=== PATIENT | female | born 1990 | race Caucasian/White ===

== ENCOUNTER 2017-07-25 10:38 | Observation (INO) | payer OTHER ==
[~2017-07-25] VITALS: Ht 162.6 cm; Wt 70.3 kg
[~2017-07-25 10:38] MED LIST: FOLI0.4T2 PO; IBUP-22; PREN1TAB49 PO
[2017-07-25] MEDS ORDERED: LACTATED RINGERS 1,000 ML IV SCH (11:15)
[2017-07-25] MEDS ORDERED: ONDANSETRON HCL 4MG/2ML VIAL IV NR (11:15)
[2017-07-25] MEDS ORDERED: ACETAMINOPHEN 325MG TABLET PO NR (11:15)
[2017-07-25] MEDS ORDERED: CEFAZOLIN 2,000 MG in DEXT 5% WATER 100 ML IV NR (12:00)
[2017-07-25] MEDS ORDERED: PNV1TABL76 PO (12:25)
== END 2017-07-25 12:52 | disposition home or self-care (01) ==
LOC: L&D 10:38
PROVIDERS: ADMIT Obstetrics & Gynecology; ATTEND Obstetrics & Gynecology
DX: O21.2 Late vomiting of pregnancy (principal); Z3A.36 36 weeks gestation of pregnancy
CPT/HCPCS: 96365; 99281; G0378; J0690; J2405; J7120; 96360; 96361; J7060

== ENCOUNTER 2017-08-05 22:10 | Inpatient (IN) | payer OTHER ==
[~2017-08-05] VITALS: Ht 162.6 cm; Wt 72.6 kg
[~2017-08-05 22:10] MED LIST changes: +PNV1TABL76 PO
[2017-08-05] MEDS ORDERED: LACTATED RINGERS 1,000 ML IV SCH (22:53)
[2017-08-05] MEDS ORDERED: DEXT 5%/LR + PITOCIN 20UNITS/L 1,000 ML IV SCH (22:53)
[2017-08-05] MEDS ORDERED: CARBOPROST TROMETHAMINE 250 MCG/ML AMPUL IM PRN (23:00)
[2017-08-05] MEDS ORDERED: METHYLERGONOVINE MALEATE 0.2 MG/ML IM PRN (23:00)
[2017-08-05] MEDS ORDERED: LIDOCAINE HCL 1% 20ML VIAL (Pyxis) INJ INFIL SCH (23:00)
[2017-08-05] MEDS ORDERED: NALOXONE HCL 0.4 MG/ML 1ML VIAL IM PRN (23:00)
[2017-08-05] MEDS ORDERED: BUTORPHANOL TARTRATE 2 MG/ML VIAL IV PRN (23:00)
[2017-08-05 23:35] LABS: BASOPHILS % 0.2 % (0.0-2.0); EOSINOPHILS % 0.3 % (0.0-5.0); HEMOGLOBIN. 11.2 g/dL (12.0-16.0); LYMPHOCYTES % 9.6 % (20.0-50.0); MEAN CORPUSCULAR HEMOGLOBIN 28.1 pg (28.0-32.0); MEAN PLATELET VOLUME 9.6 fl (7.4-10.4); MONOCYTES % 7.2 % (2.0-8.0); NEUTROPHILS % 82.7 % (40.0-76.0); PLATELET 292 x1000/uL (130-400); RED CELL DISTRIBUTION WIDTH 14.4 % (11.6-14.6)
[2017-08-05 23:39] LABS: PARTIAL THROMBOPLASTIN TIME 27.2 sec (23.4-31.0)
[2017-08-05 23:40] LABS: CLARITY URINE CLOUDY (CLEAR); COLOR URINE DARK YELLOW (YELLOW); GLUCOSE URINE NEGATIVE (NEGATIVE); KETONES URINE NEGATIVE (NEGATIVE); LEUKOCYTE ESTERASE URINE 3+ (NEGATIVE); NITRITE URINE POSITIVE (NEGATIVE); OCCULT BLOOD URINE TRACE (NEGATIVE); PROTEIN URINE 1+ (NEGATIVE); SPECIFIC GRAVITY URINE 1.016 (1.005-1.030)
[2017-08-05] MEDS ORDERED: INFLUENZA VIRUS VACCINE 0.5ML SYR IM ONE (23:45)
[2017-08-06 00:15] LABS: *AMPHETAMINES SCREEN URINE NEGATIVE (NEGATIVE); *BARBITURATES SCREEN URINE NEGATIVE (NEGATIVE); *BENZODIAZEPINES SCREEN URINE NEGATIVE (NEGATIVE); *COCAINE SCREEN URINE NEGATIVE (NEGATIVE); CANNABINOID URINE SCREEN NEGATIVE (NEGATIVE); METHADONE URINE SCREEN NEGATIVE (NEGATIVE); OPIATES URINE SCREEN NEGATIVE (NEGATIVE); PHENCYCLIDINE URINE SCREEN NEGATIVE (NEGATIVE)
[2017-08-06] MEDS ORDERED: DEXT 5%/LR + PITOCIN 20UNITS/L 1,000 ML IV SCH (01:06)
[2017-08-06] MEDS ORDERED: IBUPROFEN 400MG TABLET PO PRN (01:15)
[2017-08-06] MEDS ORDERED: LANOLIN OINT 0.25 GM TUBE TOP PRN (01:15)
[2017-08-06] MEDS ORDERED: BISACODYL 10MG SUPP PR PRN (01:15)
[2017-08-06] MEDS ORDERED: BENZOCAINE/LANOLIN/ALOE VERA SPRAY TOP PRN (01:15)
[2017-08-06] MEDS ORDERED: GLYCERIN/WITCH HAZEL LEAF MEDICATED PAD TOP PRN (01:15)
[2017-08-06] MEDS ORDERED: HEMORRHOIDAL SUPP PR PRN (01:15)
[2017-08-06] MEDS ORDERED: OXYCODONE HCL/ACETAMINOPHEN 5/325MG TABLET PO PRN ×2 (01:15)
[2017-08-06 02:20] VITALS: BP 128/68
[2017-08-06 03:10] VITALS: BP 109/64
[2017-08-06 04:00] VITALS: BP 107/61
[2017-08-06] MEDS: IBUPROFEN 800MG TABLET PO PRN (04:02)
[2017-08-06 08:10] VITALS: BP 102/60
[2017-08-06 08:31] LABS: HEPATITIS B SURFACE ANTIGEN NEGATIVE; RUBELLA IGG 197.9 IU/mL (4.99-10)
[2017-08-06] MEDS: MAGNESIUM/ALUMINUM HYDROXIDE/SIMETHICONE 30ML UDC PO SCH ×4 (10:04→21:01)
[2017-08-06] MEDS: PRENATAL VIT/FE FUMARATE/FA TABLET PO SCH (10:04)
[2017-08-06] MEDS: SIMETHICONE 80MG TABLET CHEW PO SCH ×4 (10:05→20:59)
[2017-08-06 20:00] VITALS: BP 116/50
[2017-08-07 05:40] VITALS: BP 113/67
[2017-08-07 07:04] LABS: BASOPHILS % 0.5 % (0.0-2.0); EOSINOPHILS % 1.5 % (0.0-5.0); HEMATOCRIT. 28.8 % (36.0-48.0); HEMOGLOBIN. 9.9 g/dL (12.0-16.0); LYMPHOCYTES % 21.2 % (20.0-50.0); MEAN CORPUSCULAR HEMOGLOBIN 28.8 pg (28.0-32.0); MONOCYTES % 8.3 % (2.0-8.0); NEUTROPHILS % 68.5 % (40.0-76.0); PLATELET 311 x1000/uL (130-400); RED BLOOD CELL COUNT 3.43 mill/uL (4.2-5.4); RED CELL DISTRIBUTION WIDTH 14.2 % (11.6-14.6)
[2017-08-07 08:30] VITALS: BP 114/73
[2017-08-07] MEDS: IBUPROFEN 800MG TABLET PO PRN (13:35)
[2017-08-07] MEDS: PRENATAL VIT/FE FUMARATE/FA TABLET PO SCH (13:35)
[2017-08-07] MEDS: SIMETHICONE 80MG TABLET CHEW PO SCH ×2 (13:35→21:08)
[2017-08-07 16:24] VITALS: BP 101/60
[2017-08-07] MEDS: MAGNESIUM/ALUMINUM HYDROXIDE/SIMETHICONE 30ML UDC PO SCH (21:07)
[2017-08-07 23:40] VITALS: BP 107/71
[2017-08-08 07:47] VITALS: BP 109/76
[2017-08-08] MEDS ORDERED: INFLUENZA VIRUS VACCINE 0.5ML SYR IM ONE (08:00)
[2017-08-08] MEDS: MAGNESIUM/ALUMINUM HYDROXIDE/SIMETHICONE 30ML UDC PO SCH (08:54)
[2017-08-08] MEDS: PRENATAL VIT/FE FUMARATE/FA TABLET PO SCH (08:54)
[2017-08-08] MEDS: SIMETHICONE 80MG TABLET CHEW PO SCH (08:54)
[2017-08-08] MEDS ORDERED: TETANUS, DIPHTHERIA, PERTUSSIS VAC/PF 0.5ML (>7YR OLD) IM ONE (12:00)
== END 2017-08-08 10:30 | disposition home or self-care (01) | DRG 560 ==
LOC: L&D 22:10 → 7EST PP/OB 08-06 01:57
PROVIDERS: ADMIT Specialist; ATTEND Specialist
PROC: 3E0234Z Introduction of Serum, Toxoid and Vaccine into Muscle, Percutaneous Approach (ICD-10-PCS; 2017-08-05)
PROC: 0KQM0ZZ Repair Perineum Muscle, Open Approach (ICD-10-PCS; 2017-08-06)
PROC: 10E0XZZ Delivery of Products of Conception, External Approach (ICD-10-PCS; principal; 2017-08-06 00:34)
DX: O70.1 Second degree perineal laceration during delivery (principal); Z23 Encounter for immunization; Z37.0 Single live birth; Z3A.39 39 weeks gestation of pregnancy
CPT/HCPCS: 36415; 80305; 81001; 85025; 85610; 85730; 86592; 86703; 86762; 86850; 86900; 87077; 87086; 87186; 87340; 90686; 90715; 99281; G0378; J0595; J2590; J3490; J7120